=== PATIENT | male | born 1970 | race Caucasian/White ===

== ENCOUNTER 2022-11-21 01:20 | Day surgery (SDC) | payer OTHER, SELFPAY ==
[2022-11-08 14:54] VITALS: BMI 28.5
[2022-11-21 09:38] VITALS: BP 135/82; PULSE 95; RESP 20; TEMP 36.2; O2SAT 98; BMI 27.3
[2022-11-21] MEDS: LACTATED RINGERS 1,000 ML 150 ML IV CONT (09:46)
--- NOTE | 2022-11-21 10:21 | PM.HPGS ---
History of Present Illness History of Present Illness Consent: Risks, benefits, and alternatives have been discussed and questions answered. Patient agrees to proceed with procedure. Chief complaint: hx colon polyps, hematochezia Narrative: Robyn Cosme is a 52 year old male Who has had change in bowel habits over the past month or so. He has had diarrhea and also blood in his stools. His stools also have been mucousy. Stool cultures have been done which were all negative including C diff. his stools are a little more formed now, having about 3 bowel movements for day, but still not normal. He has history of having a polyp removed from his colon 10 years ago. His last colonoscopy, 5 years ago was negative for polyps. Review of Systems Review of Systems: All systems reviewed & are unremarkable except as noted in HPI and below PMFSH Past Medical History Medical History History of adenomatous polyp of colon Obesity Tobacco abuse Social History Social History Smoking packs per day: 1 Smoking cigarettes per day: 20.0 Years smoked: 35 Smoking pack-years: 35.00 Smoking status: Current every day smoker Tobacco type: cigarettes Alcohol intake: current Alcohol use details: 2-3X monthly Substance use type: does not use Living arrangements: with family Occupation/Education: occupation Gender identity (if verbalized by the patient): Male Spiritual care concerns: No Meds Home Medications and Allergies Home Medications Medication Instructions Recorded Confirmed Type hydroxyzine HCl 25 mg tablet 25 mg PO TID PRN Anxiety 11/06/22 11/21/22 History losartan 50 mg tablet 50 mg PO DAILY 11/06/22 11/21/22 History Allergies Allergy/AdvReac Type Severity Reaction Status Date / Time No Known Allergies Allergy Verified 11/21/22 09:37 Vital Signs Vital Signs - 24 hr 11/21/22 09:38 Temperature 36.2 C L Pulse Rate 95 Respiratory Rate 20 Blood Pressure 135/82 Pulse Oximetry 98 Oxygen Delivery Room Air Exam Const: General: alert Orientation/consciousness: patient oriented x3 Resp: Auscultation: clear to auscultation bilaterally Cardio: Rhythm: regular rhythm GI: GI Palp: Yes Soft to palpation and No Tenderness to palpation present (GI) Neuro: General: patient oriented x3
--- NOTE | 2022-11-21 10:58 | WPDANESEPPF ---
Anes - Initial Pre Proc Eval Procedure: Operation Date: 11/21/22 11:00 Proposed Procedures p Colonoscopy - Alexander Leonardo MD Date/Time: 11/21/22 10:58 Surgeon: Alexander Leonardo MD Pre Op Diagnosis: hx colon polyps, hematochezia Patient Data Age: 52 Gender: M Height: 1.8 m Weight: 89 kg Last Vital Signs Temp 97.1 F L 11/21/22 09:38 Pulse 95 11/21/22 09:38 Resp 20 11/21/22 09:38 BP 135/82 11/21/22 09:38 Pulse Ox 98 11/21/22 09:38 O2 Del Method Room Air 11/21/22 09:38 Allergies Allergy/AdvReac Type Severity Reaction Status Date / Time No Known Allergies Allergy Verified 11/21/22 09:37 Home Medications Medication Instructions Recorded Confirmed Type hydroxyzine HCl 25 mg tablet 25 mg PO TID PRN Anxiety 11/06/22 11/21/22 History losartan 50 mg tablet 50 mg PO DAILY 11/06/22 11/21/22 History Patient hx anesthesia problems: none Family hx anesthesia problems: none Results Review: All pre-operative results and documents have been reviewed as part of the pre-operative evaluation. FOR[facility]LY [facility], [facility] Past Medical History Medical History History of adenomatous polyp of colon Obesity Tobacco abuse Social History Social History Smoking packs per day: 1 Smoking cigarettes per day: 20.0 Years smoked: 35 Smoking pack-years: 35.00 Smoking status: Current every day smoker Tobacco type: cigarettes Alcohol intake: current Alcohol use details: 2-3X monthly Substance use type: does not use Living arrangements: with family Occupation/Education: occupation Gender identity (if verbalized by the patient): Male Spiritual care concerns: No Anes - Eval Final PreProcedure Day of Procedure 11/21/22 10:58 Patient weight: overweight Heart: regular rate and rhythm Lungs: clear to auscultation Airway: Mallampati scale class II Neurological: alert and oriented Last oral intake: >/= 8 hours ASA classification: II Emergent: no Anesthetic plan: proceed Anesthesia type and monitoring: general GIVS and standard monitoring Results Review: All pre-operative results and documents have been reviewed as part of the pre-operative evaluation. Informed Consent: The patient's anesthetic plan and its attendant risks and benefits were discussed with the patient/family/POA. Questions were solicited and answers provided to the satisfaction of the patient/family/POA.
[2022-11-21 11:25] VITALS: BP 113/52; PULSE 93; RESP 16; O2SAT 97
[2022-11-21 11:35] VITALS: BP 114/80; PULSE 87; RESP 18; O2SAT 98
[2022-11-21 11:45] VITALS: BP 112/82; PULSE 82; RESP 17; O2SAT 98
== END 2022-11-21 11:59 | disposition home or self-care (01) ==
PROVIDERS: PCP Internal Medicine; Visit Provider Internal Medicine Gastroenterology
PROC: 0DJD8ZZ Inspection of Lower Intestinal Tract, Via Natural or Artificial Opening Endoscopic (ICD-10-PCS; CPT 45378; principal; 2022-11-21 11:00)
DX: K52.9 Noninfective gastroenteritis and colitis, unspecified (principal); Z86.010 Personal history of colon polyps; F17.210 Nicotine dependence, cigarettes, uncomplicated
CPT/HCPCS: 45380; 88305; J2704; J7120

== ENCOUNTER 2024-08-05 12:49 | Outpatient (CLI) | payer OTHER, SELFPAY ==
--- NOTE | ~2024-08-05 | CT_ITS ---
CT of the Abdomen and Pelvis: Indication: Abdominal pain Technique: 2.5 mm axial scans were obtained through the abdomen and pelvis following intravenous adm inistration of 100 cc of Omnipaque 350. Dose reduction technique was used on this scan by utilizing a utomated exposure control and iterative reconstruction technique. The dose-length product (DLP) was 9 28.94 mGy-cm. Findings: Scans through the lung bases are unremarkable. The liver, spleen, pancreas, gallbladder, adrenals and kidneys are within normal limits. No evidence of aortic aneurysm. No lymphadenopathy. There is bowel wall thickening and inflammatory change anterolaterally diverticulum at the proximal s igmoid colon, compatible with acute diverticulitis. Probable mildly prominent diverticulum versus pos sibly tiny contained microperforation. No abscess. No bowel obstruction. Images through the pelvis were performed. Urinary bladder unremarkable. No pelvic mass seen. No ascit es. Impression: Acute diverticulitis of the proximal sigmoid colon. Probable mildly prominent diverticulum in this re gion, less likely contained microperforation. Reviewed, dictated and finalized at location M. Impression: Acute diverticulitis of the proximal sigmoid colon. Probable mildly prominent d iverticulum in this region, less likely contained microperforation.
[2024-08-05 13:19] LABS: Estimated Glomerular Filt Rate > 60
== END 2024-08-05 12:50 | disposition home or self-care (01) ==
LOC: ANHIMG 12:50
PROVIDERS: PCP Internal Medicine; Visit Provider Internal Medicine
DX: K57.32 Diverticulitis of large intestine without perforation or abscess without bleeding (principal)
CPT/HCPCS: 74177; Q9967